=== PATIENT | male | born 1985 | race African-American/Black ===

== ENCOUNTER → 2019-02-28 | Outpatient (CLI) | payer OTHER ==
--- NOTE | 2019-02-28 09:55 | KCIC ---
MR of the left knee HISTORY: Left knee pain, pain is anterior. TECHNIQUE: Routine multiplanar sequences are obtained. FINDINGS: No evidence of medial meniscal tear. 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 There is a tiny single slice defect at the posterior horn aspect, series 5, image 8, suspicious for a tiny radial tear. Anterior and posterior cruciate ligaments are intact. Medial collateral ligament is intact. Iliotibial band unremarkable. Fibular collateral ligament demonstrates mild proximal signal, may be degeneration or a mild sprain but no rupture or displacement. Biceps femoris tendon and popliteus tendon are intact. The extensor mechanism is intact. No evidence of acute retinacular disruption. There is focal susceptibility artifact just anterior to the anterior lateral tibial plateau suggesting some metal in the tissue. Small joint effusion. No evidence of acute articular cartilage defect. No bone destruction or acute fracture. No significant Fraire's cyst. There is mild fluid within the deep infrapatellar bursa. IMPRESSION: 1. Incompletely discoid lateral meniscus. Tiny single slice defect suggests a small radial tear. 2. Small joint effusion. 3. Mild signal of the proximal fibular collateral ligament, likely chronic or degenerative. No acute rupture. Electronically signed by: Brett Young MD (02/28/2019 9:52 AM) [id number]
== END | disposition home or self-care (01) ==
LOC: KCIC MRI 07:45
PROVIDERS: ATTEND Orthopaedic Surgery
DX: M25.462 Effusion, left knee (principal); M23.301 Other meniscus derangements, unspecified lateral meniscus, left knee
CPT/HCPCS: 73721